=== PATIENT | female | born 1950 | race Two or more races ===

== ENCOUNTER → 2024-12-07 | Outpatient (CLI) | payer OTHER, MEDICAID, SELFPAY ==
--- NOTE | 2024-12-07 10:22 | XR_ITS ---
Examination: PA lateral chest 2 views TECHNIQUE: Upright PA lateral chest 2 views Exam date and time: December 07, 2024 1039 hours INDICATIONS: Coughing one week. FINDINGS: Opacity in the right middle lobe on the lateral view Normal heart size No pulmonary edema Prominent osteopenia IMPRESSION: Right middle lobe pneumonia
== END | disposition home or self-care (01) ==
PROVIDERS: PCP Specialist
DX: J18.1 Lobar pneumonia, unspecified organism (principal)
CPT/HCPCS: 71046